=== PATIENT | female | born 1990 | race Asian ===

== ENCOUNTER 2016-06-14 07:45 | Emergency (ER) | payer OTHER ==
[2016-06-14 07:52] VITALS: BP 116/56; PULSE 90; TEMP 98.5; BMI 26.5
--- NOTE | 2016-06-14 08:12 | PDOC ---
History of Present Illness - General Chief Complaint: Injury Stated Complaint: JOINT PAIN/INJURY Time Seen by Provider: 06/14/16 08:11 History Source: Patient Exam Limitations: No Limitations - History of Present Illness Initial Comments: 06/14/16 08:11 inversion injury to right ankle, mul used Manjit wrap and ice for relief. Reports mul,tiple occasions in past wiht sprains. 06/14/16 09:53 Occurred: reports: yesterday Severity: reports: mild, moderate Pain Location: reports: lower extremity (right ankle ) Modifying Factors: improves with: cold therapy, pain medication Associated Symptoms (Fall): denies symptoms Past History - Travel Traveled outside of the country in the last 30 days: No Close contact w/someone who was outside of country & ill: No - Past Medical History Allergies/Adverse Reactions: Allergies Allergy/AdvReac Type Severity Reaction Status Date / Time No Known Allergies Allergy Verified 06/14/16 07:52 Home Medications: Ambulatory Orders NK [No Known Home Medication] 06/14/16 Other medical history: denies - Psycho/Social/Smoking Cessation Hx Suicidal Ideation: No Smoking History: Never smoked Information on smoking cessation initiated: No Hx Alcohol Use: No Drug/Substance Use Hx: No Substance Use Type: None Trauma Specific PMHX - Complaint Specific PMHX Back Injury: No Neck Injury: No Review of Systems - Review of Systems Able to Perform ROS?: Yes Is the patient limited Fijian proficient: Yes Constitutional: Yes: Symptoms Reported, See HPI, Malaise Respiratory: No: Symptoms reported Musculoskeletal: Yes: Symptoms Reported, See HPI, Joint Pain, Joint Swelling Integumentary: Yes: Symptoms Reported, See HPI, Bruising All Other Systems: Reviewed and Negative *Physical Exam - Vital Signs Last Vital Signs Temp Pulse Resp BP Pulse Ox 98.5 F 90 19 116/56 98 06/14/16 07:50 06/14/16 07:50 06/14/16 07:50 06/14/16 07:50 06/14/16 07:50 - Physical Exam General Appearance: Yes: Nourished, Appropriately Dressed, Apparent Distress, Mild Distress HEENT: positive: GAMALIEL, Normal ENT Inspection, TMs Normal Musculoskeletal: positive: Decreased Range of Motion (right ankle ). negative: Normal Inspection Extremity: positive: Normal Capillary Refill, Tender (to lateral malleolus and extending to fifth metatarsal, no navicular or medial malleoli tenderness, negative squeeze test, neurovascular intact). negative: Normal Inspection, Normal Range of Motion Integumentary: positive: Normal Color, Bruising Neurologic: positive: admitting office escort II-XII NML intact, Fully Oriented, Alert, Normal Mood/ Affect, Normal Response, Motor Strength 5/5 Procedures - Splinting Splint Location: Right: Ankle Pre-Made Type: aircast ED Treatment Course - RADIOLOGY Radiology Studies Ordered: Category Date Time Status ANKLE-RIGHT [RAD] Stat Radiology 06/14/16 08:11 Ordered Progress Note - Progress Note Progress Note: ankle sprain- no new Fx-0 manjit aircast / crutches provided. *DC/Admit/Observation/Transfer Diagnosis at time of Disposition: Right ankle sprain Qualifiers: Encounter type: initial encounter Involved ligament of ankle: unspecified ligament Qualified Code(s): S93.401A - Sprain of unspecified ligament of right ankle, initial encounter - Discharge Dispostion Disposition: HOME Condition at time of disposition: Stable Admit: No - Referrals Referrals: Shay Lin [Primary Care Provider] - Seferino Perdomo MD [Staff Physician] - - Patient Instructions Printed Discharge Instructions: DI for Ankle Sprain Additional Instructions: Rest, ice to area on and off for 15 minutes 4-6 times a day Avoid heavy lifting or exercise until pain and swelling is resolved or until further directed Keep area highly elevated to reduce swelling Use splints/Manjit wrap as directed Followup with orthopedist in one to 2 days if not improving, if significantly improved may wait one week for followup with orthopedist May use ibuprofen 2-200 mg tablets every 6 hours as needed for pain - Post Discharge Activity Work/School Note: Back to Work
== END 2016-06-14 09:21 | disposition home or self-care (01) ==
LOC: JERFT 07:45
PROC: 2W3LX1Z Immobilization of Right Lower Extremity using Splint (ICD-10-PCS; principal; 2016-06-14)
DX: S93.401A Sprain of unspecified ligament of right ankle, initial encounter (principal); X50.1XXA Overexertion from prolonged static or awkward postures, initial encounter; Y93.89 Activity, other specified; Y92.89 Other specified places as the place of occurrence of the external cause
CPT/HCPCS: 73610-TC-RT; 99282-25

== ENCOUNTER 2016-07-17 06:45 | Emergency (ER) | payer OTHER ==
[2016-07-17 07:22] VITALS: BP 125/77; PULSE 99; TEMP 99.5; BMI 28.3
--- NOTE | 2016-07-17 07:38 | PDOC ---
History of Present Illness - General Chief Complaint: Cold Symptoms Stated Complaint: FEVER X 1 DAY Time Seen by Provider: 07/17/16 07:07 History Source: Patient Exam Limitations: No Limitations - History of Present Illness Initial Comments: 07/17/16 07:36 CHIEF COMPLAINT: Fever HISTORY OF PRESENT ILLNESS: This is an otherwise healthy 26 year old female who presents for evaluation of one day of fever (TMax 103). She also complains of sore throat and dry cough. Her mother and sibling were recently treated for bronchitis and improved after treatment with azithromycin. No recent travel. V/s on arrival are notable for P 99. Patient took Motrin prior to arrival. REVIEW OF SYSTEMS: GENERAL/CONSTITUTIONAL: Fevers/chills x 1 day. No weakness. No weight change. HEAD, EYES, EARS, NOSE AND THROAT: Throat pain/painful swallowing. No ear pain or discharge. CARDIOVASCULAR: No chest pain or palpitations. RESPIRATORY: Dry cough. No wheezing or shortness of breath. GASTROINTESTINAL: No nausea, vomiting, diarrhea or constipation. GENITOURINARY: No dysuria, frequency, or change in urination. MUSCULOSKELETAL: No joint or muscle swelling or pain. No neck or back pain. SKIN: No rash or easy bruising. NEUROLOGIC: No headache, vertigo, loss of consciousness, or loss of sensation. PSYCHIATRIC: No depression or anxiety. ENDOCRINE: No increased thirst. No abnormal weight change. HEMATOLOGIC/LYMPHATIC: No anemia, easy bleeding, or history of blood clots. ALLERGIC/IMMUNOLOGIC: No hives or skin allergy. No latex allergy. PHYSICAL EXAM: GENERAL: The patient is awake, alert, and fully oriented, in no acute distress. HEAD: Normal with no signs of trauma. ENT: Pupils equal, round and reactive to light, extraocular movements intact, sclera anicteric, conjunctiva clear. Neck supple. LUNGS: Scant expiratory wheezes. Normal excursion. No respiratory distress or use of accessory muscles. CV: RRR, S1/S2, no MRG. Cap refill < 2 sec. ABDOMEN: Soft, non-distended, non-tender. EXTREMITIES: Normal range of motion, no edema. NEUROLOGICAL: Normal speech, normal gait. CN II-XII grossly intact. PSYCH: Normal mood, normal affect. SKIN: Warm, dry, normal turgor, no rashes or lesions noted. Past History - Past Medical History Allergies/Adverse Reactions: Allergies Allergy/AdvReac Type Severity Reaction Status Date / Time No Known Allergies Allergy Verified 07/17/16 07:20 Home Medications: Ambulatory Orders Albuterol Sulfate Inhaler - [Ventolin HFA Inhaler -] 1 - 2 inh PO QID #1 inhaler 07/17/16 Azithromycin [Zithromax 250mg Tablets -] 250 mg PO UTDICT #6 tab 07/17/16 Other medical history: DENIES. - Psycho/Social/Smoking Cessation Hx Anxiety: No Suicidal Ideation: No Smoking History: Never smoked Hx Alcohol Use: No Drug/Substance Use Hx: No Substance Use Type: None *Physical Exam - Vital Signs Last Vital Signs Temp Pulse Resp BP Pulse Ox 99.5 F 99 H 18 125/77 100 07/17/16 07:20 07/17/16 07:20 07/17/16 07:20 07/17/16 07:20 07/17/16 07:20 Medical Decision Making - Medical Decision Making 08/18/16 12:23 A/P: 26 year old female with fever, likely secondary to bronchitis, + reactive airway. 1. Azithromycin po 2. Albuterol MDI 3. Anti-tussive 4. Followup instructions and return precautions reviewed *DC/Admit/Observation/Transfer Diagnosis at time of Disposition: Bronchitis - Discharge Dispostion Disposition: HOME Admit: No - Prescriptions Prescriptions: Albuterol Sulfate Inhaler - [Ventolin HFA Inhaler -] 1 - 2 inh PO QID #1 inhaler Azithromycin [Zithromax 250mg Tablets -] 250 mg PO UTDICT #6 tab - Referrals Referrals: STAFF,NOT ON [Primary Care Provider] - - Patient Instructions Printed Discharge Instructions: DI for Acute Bronchitis Additional Instructions: -Rest and stay well-hydrated -Take Tylenol or Motrin as needed for fever -Take Azithromycin as prescribed for bronchitis and use the albuterol inhaler as needed for cough -Return here for fever for more than 5 days, shortness of breath/difficulty breathing, or any other concerning symptoms - Post Discharge Activity Work/School Note: Back to Work
== END 2016-07-17 07:50 | disposition home or self-care (01) ==
LOC: JER 06:45
DX: J40 Bronchitis, not specified as acute or chronic (principal)
CPT/HCPCS: 99282-25